=== PATIENT | female | born 1965 | race Caucasian/White ===

== ENCOUNTER 2019-07-14 16:32 | Emergency (ER) | payer MEDICAID, MEDICARE ==
--- NOTE | 2019-07-14 17:17 | ED ---
Abdominal Pain/Female - HPI Summary HPI Summary: Patient is a 53 y/o F presenting to the ED for a chief complaint of epigastric abdominal pain for the last 2 years. Patient is present with her . Patient describes a soreness sensation in her abdomen and a burning sensation in her esophagus. Patient reports decreased food intake, weight loss, and abdominal distention which she attributes to gas. She endorses constipation for which she does not have relief until using an enema. Patient takes omeprazole, Pepcid, and GasX for her symptoms without relief. Last normal bowel movement was several months ago. She was recommended to be seen at [facility] by her GI. PMHx is significant for ulcers and H. pylori infection. PSHx is significant for hernia repair. Patient reports having several courses of Amoxicillin over the last 2 years. She notes having been prescribed Amoxicillin for an ear infection, prior to a surgery, and for an H. pylori infection. After one of the courses of Amoxicillin she was placed on she felt better, but after completing the course her symptoms returned. Over the last 2 years, she has been seen by several GI's and facilities, including [facility], [facility], and [facility]. Her most recent GI visit was on 07/13/19 at [facility] during which she was prescribed Trulance. Her states the patient has had 27 CTs in the last 2 years so her states she cannot have any more CT's. Her is requesting the patient be admitted for malnutrition. Patient is legally blind. - History of Current Complaint Chief Complaint: EDAbdPain Stated Complaint: ULCERS PER PT Time Seen by Provider: 07/14/19 17:15 Hx Obtained From: Patient Onset/Duration: Sudden Onset, Still Present Timing: Constant Severity Initially: Severe Severity Currently: Severe Pain Intensity: 9 Pain Scale Used: 0-10 Numeric Location: Epigastric Radiates: No Character: Burning - In the esophagus, Other: - Soreness in the abdomen Aggravating Factor(s): Nothing Alleviating Factor(s): Other: - Enema Associated Signs and Symptoms: Positive: Other: - Positive decreased food intake , weight loss, and abdominal distention Allergies/Adverse Reactions: Allergies Allergy/AdvReac Type Severity Reaction Status Date / Time celecoxib Allergy Unknown Verified 07/14/19 16:43 Reaction Details dapsone Allergy Unknown Verified 07/14/19 16:43 Reaction Details nitrofurantoin Allergy Unknown Verified 07/14/19 16:43 Reaction Details saccharin Allergy Unknown Verified 07/14/19 16:43 Reaction Details Sulfa (Sulfonamide Allergy Hives Verified 07/14/19 16:43 Antibiotics) Sulfonylureas Allergy Unknown Verified 07/14/19 16:43 Reaction Details Thiazides Allergy Unknown Verified 07/14/19 16:43 Reaction Details [id number] Antimigraine Allergy Unknown Verified 07/14/19 16:43 Agents Reaction Details loop diuretics Allergy Unknown Uncoded 07/14/19 16:43 Reaction Details Home Medications: Home Medications Cephalexin CAP* [Keflex CAP*] 500 mg PO QID 07/14/19 [History Confirmed 07/14/19 ] Famotidine SUSP* [Pepcid SUSP*] 5 ml PO BID PRN 07/14/19 [History Confirmed ] Linaclotide [Linzess] 72 mcg PO QPM 07/14/19 [History Confirmed 07/14/19] Lipase/Protease/Amylase [Viokace] 1 tab PO TID 07/14/19 [History Confirmed 07/14] Lubiprostone (NF) [Amitiza (NF)] 8 mcg PO DAILY 07/14/19 [History Confirmed ] Omeprazole (Nf) [Prilosec (NF)] 40 mg PO BID 07/14/19 [History Confirmed ] Simethicone [Gas-X] 125 mg PO TID PRN 07/14/19 [History Confirmed 07/14/19] hydrOXYzine HCL TAB* [Atarax 25 MG TAB*] 25 mg PO QID PRN 30 Days #30 tab [Rx] PMH/Surg Hx/FS Hx/Imm Hx Previously Healthy: Yes GI History: Reports: Hx Ulcer, Other GI Disorders - H. pylori Sensory History: Reports: Hx Legally Blind Denies: Hx Deafness Opthamlomology History: Reports: Hx Legally Blind EENT History: Denies: Hx Deafness - Surgical History Surgical History: Yes Surgery Procedure, Year, and Place: Hernia repair Infectious Disease History: No Infectious Disease History: Denies: Traveled Outside the [place] in Last 30 Days - Family History Known Family History: Negative: Renal Disease - Social History Occupation: Disabled Lives: With Family Alcohol Use: None Hx Substance Use: No Substance Use Type: Reports: None Hx Tobacco Use: No Smoking Status (MU): Never Smoked Tobacco Review of Systems Positive: Other - Positive weight loss and decreased food intake Positive: Abdominal Pain - Epigastric, Other - Positive abdominal distention and constipation All Other Systems Reviewed And Are Negative: Yes Physical Exam - Summary Physical Exam Summary: Constitutional: Well-developed, Thin. Alert. (-) Distressed Skin: Warm, Dry HENT: Normocephalic; Atraumatic Eyes: Conjunctiva normal Neck: Musculoskeletal ROM normal neck. (-) JVD, (-) Stridor, (-) Nuchal rigidity Cardio: Rhythm regular, rate normal, Heart sounds normal; Intact distal pulses; Radial pulses are 2+ and symmetric. (-) Murmur Pulmonary/Chest wall: Effort normal. (-) Respiratory distress, (-) Wheezes, (-) Rales Abd: Soft, (-), (-) Guarding, (-) Rebound. Old surgical scars, + epigastric tenderness. Musculoskeletal: (-) Edema Neuro: Alert, Oriented x3 Psych: Anxious Triage Information Reviewed: Yes Vital Signs On Initial Exam: Initial Vitals Temp Pulse Resp BP Pulse Ox 99.3 F 101 16 124/88 99 07/14/19 16:33 07/14/19 16:33 07/14/19 16:33 07/14/19 16:33 07/14/19 16:33 Vital Signs Reviewed: Yes Procedures - Sedation Patient Received Moderate/Deep Sedation with Procedure: No Diagnostics - Vital Signs Vital Signs Temp Pulse Resp BP Pulse Ox 07/14/19 16:33 99.3 F 101 16 124/88 99 - Laboratory Result Diagrams: 07/14/19 17:26 07/14/19 17:26 Lab Statement: Any lab studies that have been ordered have been reviewed, and results considered in the medical decision making process. - EKG 17:30 Cardiac Rate: NL - 85 BPM EKG Rhythm: Sinus Rhythm ST Segment: Normal Ectopy: None Summary of EKG Findings: An EKG at 17:30 reveals normal sinus rhythm with 85 BPM , nml axis, nml intervals. No STEMI. No acute changes. ED physician has reviewed and interpreted this EKG. Re-Evaluation - Re-Evaluation First Eval Re-Evaluation Time: 20:00 Comment: d/w patient and family plan for discharge. Willing to try atarax for anxiety. Abdominal Pain Fem Course/Dx - Course Course Of Treatment: 53 y/o F w hx chronic GI problems p/w epigastric abdominal pain. - patient has had an extensive GI workup including over 25 CT scans in 2 years, multiple endoscopies, has been on a handful of medications in which she states have not helped. She's also had a [facility] bowel [facility]through study at [facility], has been intermittently on TPN at other hospitals. At this time source of pain is unclear however suspect there is a strong anxiety component to her presentations. Patient has a family history of severe anxiety causing eating disorders according to her sister and both her mother and grandmother. Patient recently had an endoscopy in May which was normal, patient is requesting a second endoscopy here. Discussed with on-call GI who does not think the patient warrants an endoscopy at this time, they saw her in the office yesterday and are willing to follow her up again. Patient was given a GI cocktail which she states didn't help. Patient was given IV fluids which she states swelled her bowels, I explained that this is unlikely causing her pain is the fluids do not go directly into her stomach. Patient refusing to eat , and is hyper focused on the fact that she is losing weight. Discussed hospitalist who agrees that there is no emergent cause for admission as patient has been eating home and labs did not show any evidence of acute malnutrition. Patient will be given Atarax for anxiety, sister in agreement that anxiety could be triggering this. I expressed understanding with her frustration of not having a diagnosis. I think that she'll benefit from exploration of anxiety is a component of her pain. - Diagnoses Provider Diagnoses: Abdominal pain, Dehydration - Provider Notifications Discussed Care Of Patient With: Luther Lilly Time Discussed With Above Provider: 18:36 Instructed by Provider To: Other - Dr. Lilly, Hospitalist, states that the pt requires no acute critical care and should be discharged home. Admit/Transition Orders Completed By ED Provider: Yes Discharge ED - Sign-Out/Discharge Documenting (check all that apply): Patient Departure - discharge - Discharge Plan Condition: Stable Disposition: HOME Prescriptions: hydrOXYzine HCL TAB* [Atarax 25 MG TAB*] 25 mg PO QID PRN 30 Days #30 tab PRN Reason: Anxiety Patient Education Materials: Acute Abdominal Pain (ED) Referrals: [facility] [Outside] Tonny Arriola MD [Medical Doctor] - Nikolay Cedeno MD [Medical Doctor] - Additional Instructions: You were seen in the emergency department for pain. We discussed her case with our on-call craft artist as well as her hospitalist do not think you require any acute admission. Please up with gastroenterology as scheduled. Please follow up with your primary care doctor in next 2-3 days and return to emergency department for worsening pain, fevers, or concerning symptoms. It was a pleasure taking care of you today. - Billing Disposition and Condition Condition: STABLE Disposition: Home - Attestation Statements Document Initiated by Nicolaibe: Yes Documenting Scribe: Santi Cobian Provider For Whom Jodee is Documenting (Include Credential): Zulay Santamaria MD Scribe Attestation: I, Santi Cobian, scribed for Zulay Santamaria MD on 07/15/19 at 1107. Scribe Documentation Reviewed: Yes Provider Attestation: The documentation as recorded by the scribe, Santi Cobian accurately reflects the service I personally performed and the decisions made by me, Zulay Santamaria MD Status of Scribe Document: Viewed
[2019-07-14 17:36] LABS: ABS Basophils 0.1 10^3/ul (0-0.2); ABS Eosinophils 0.1 10^3/ul (0-0.6); ABS Lymphocytes 2.3 10^3/ul (1.0-4.8); ABS Monocytes 0.6 10^3/ul (0-0.8); ABS Neutrophils 7.1 10^3/ul (1.5-7.7); Hematocrit 49 % (35-47); Hemoglobin 17.3 g/dL (12.0-16.0); Lymphocyte % 22.2 %; Mean Corpuscular HGB Conc 36 g/dL (31-36); Mean Corpuscular Hemoglobin 33 pg (27-31); Mean Corpuscular Volume 92 fL (80-97); Mean Platelet Volume 7.9 fL (7.4-10.4); Platelet Count 299 10^3/uL (150-450); Red Cell Distribution Width 13 % (10-15); White Blood Count 10.1 10^3/uL (3.5-10.8)
[2019-07-14 17:49] LABS: ALT 13 U/L (7-52); AST 15 U/L (13-39); Albumin 5.1 g/dL (3.2-5.2); Albumin/Globulin Ratio 1.6 (1-3); Alkaline Phosphatase 86 U/L (34-104); Anion Gap 7 mmol/L (2-11); BUN/Creatinine Ratio 16.7 (8-20); Blood Urea Nitrogen 13 mg/dL (6-24); CO2 Carbon Dioxide 29 mmol/L (22-32); Calcium 10.4 mg/dL (8.6-10.3); Chloride 101 mmol/L (101-111); EGFR African American 93.8 (>60); EGFR Non-African American 77.6 (>60); Globulin 3.2 g/dL (2-4); Glucose 104 mg/dL (70-100); Potassium 3.5 mmol/L (3.5-5.0); Sodium 137 mmol/L (135-145); Total Protein 8.3 g/dL (6.4-8.9)
[2019-07-14] MEDS ORDERED: NS 0.9% 1000 ML** 1,000 ML IV ONE (18:12)
[2019-07-14] MEDS ORDERED: Al Hydrox/Mg Hydrox/Simet LIQ* 30 ML UDC PO ONE (18:30)
[2019-07-14] MEDS ORDERED: Lidocaine 2% VISCOUS* 15 ML UDC PO ONE (18:30)
[2019-07-14] MEDS ORDERED: hydrOXYzine HCL TAB* 25 MG PO ONE (21:18)
[2019-07-14] MEDS ORDERED: Famotidine TAB* 20 MG PO ONE (21:18)
[2019-07-14 21:40] VITALS: BP 120/72
== END 2019-07-14 21:38 | disposition home or self-care (01) ==
LOC: ED 16:32
DX: R10.13 Epigastric pain (principal); E86.0 Dehydration; R14.0 Abdominal distension (gaseous); K59.00 Constipation, unspecified; F41.9 Anxiety disorder, unspecified; Z88.2 Allergy status to sulfonamides; Z88.8 Allergy status to other drugs, medicaments and biological substances
CPT/HCPCS: 36415; 80053; 83690; 85025; 93005; 96360; 99284; A9270-GY